=== PATIENT | female | born 1985 | race Caucasian/White ===

== ENCOUNTER 2017-10-06 22:06 | Emergency (ER) | payer MEDICAID ==
[2017-10-06 23:35] LABS: BASOPHIL % 0.4 % (0-2); PLATELET COUNT 197 x10^3mcL (130-400); RED CELL DISTRIBUTION WIDTH 12.4 % (11.5-14.5)
[2017-10-06 23:45] LABS: CALCIUM 8.4 mg/dL (8.5-10.1); CARBON DIOXIDE 23.8 mmol/L (21-32); CHLORIDE SERUM 106 mmol/L (98-107); CREATININE SERUM 0.7 mg/dL (0.6-1.0); GFR1 > 60 mL/min; GLUCOSE SERUM 95 mg/dL (74-106); POTASSIUM SERUM 3.5 mmol/L (3.5-5.1); SODIUM SERUM 141 mmol/L (136-145)
[2017-10-06 23:53] LABS: ALBUMIN 3.8 g/dL (3.4-5.0); ALKALINE PHOSPHATASE 57 U/L (46-116); ALT/SGPT 12 U/L (14-59); AST/SGOT 15 U/L (15-37); BILIRUBIN TOTAL 0.2 mg/dL (0.20-1.00); TOTAL PROTEIN, SERUM 7.3 g/dL (6.4-8.2)
[2017-10-07 00:28] VITALS: BP 121/70
== END 2017-10-07 00:28 | disposition home or self-care (01) ==
LOC: ED 22:06
PROVIDERS: Emergency Medicine
DX: S29.9XXA Unspecified injury of thorax, initial encounter (principal); J45.909 Unspecified asthma, uncomplicated; V89.2XXA Person injured in unspecified motor-vehicle accident, traffic, initial encounter; Y93.I9 Activity, other involving external motion; Y92.89 Other specified places as the place of occurrence of the external cause; Y99.8 Other external cause status
CPT/HCPCS: 36415; Q0092

== ENCOUNTER 2018-07-01 16:14 | Emergency (ER) | payer MEDICAID | END 2018-07-01 21:05 | disposition home or self-care (01) | LOC: ED 16:14 ==

== ENCOUNTER 2018-09-16 19:55 | Emergency (ER) | payer MEDICAID ==
[~2018-09-16] VITALS: Ht 162.6 cm; Wt 65.3 kg
[2018-09-16 20:29] VITALS: Ht 162.6 cm; Wt 65.3 kg
[2018-09-16 21:12] LABS: BASOPHIL % 0.4 % (0-2); PLATELET COUNT 194 x10^3mcL (130-400); RED CELL DISTRIBUTION WIDTH 13.2 % (11.5-14.5)
[2018-09-16 21:22] LABS: CALCIUM 9.2 mg/dL (8.5-10.1); CARBON DIOXIDE 30.2 mmol/L (21-32); CHLORIDE SERUM 102 mmol/L (98-107); CREATININE SERUM 0.8 mg/dL (0.6-1.0); GFR1 > 60 mL/min; GLUCOSE SERUM 104 mg/dL (74-106); POTASSIUM SERUM 3.9 mmol/L (3.5-5.1); SODIUM SERUM 141 mmol/L (136-145)
[2018-09-16 21:28] LABS: ALBUMIN 3.8 g/dL (3.4-5.0); ALKALINE PHOSPHATASE 57 U/L (46-116); ALT/SGPT 22 U/L (14-59); AST/SGOT 12 U/L (15-37); BILIRUBIN TOTAL 0.2 mg/dL (0.20-1.00); LIPASE 339 IU/L (73-393); TOTAL PROTEIN, SERUM 7.3 g/dL (6.4-8.2)
[2018-09-16 22:34] VITALS: BP 105/50
== END 2018-09-16 22:34 | disposition home or self-care (01) ==
LOC: ED 19:55
PROVIDERS: Emergency Medicine
DX: K21.9 Gastro-esophageal reflux disease without esophagitis (principal); K80.20 Calculus of gallbladder without cholecystitis without obstruction
CPT/HCPCS: J2270; J2405; J7030; Q0092